=== PATIENT | female | born 2000 | race Caucasian/White ===

== ENCOUNTER 2025-01-03 03:46 | Observation (INO) | payer SELFPAY ==
[2025-01-03] VITALS (21 sets, daily range): BP systolic 78–104; BP diastolic 46–64; PULSE 82–111; RESP 16–24; TEMP 36.5–37.6; O2SAT 94–100; BMI 28.4
[2025-01-03] MEDS: 0.9% Normal Saline (1000mL) 1,000 ML 999 ML IV ×3 (04:25→05:48)
[2025-01-03 04:38] LABS: Absolute Lymphocyte Count 2.56 X10^3/uL (0.83-4.51); Basophil# 0.04 X10^3/uL; Basophil% 0.3 % (0-1); Eosinophil# 0.05 X10^3/uL; Eosinophils% 0.3 % (0-5); Hematocrit 28.5 % (37-47); Hemoglobin 9.6 g/dL (12.0-15.0); Lymphocyte # 2.56 X10^3/ul (0.83-4.51); Lymphocyte % 16.6 % (19-41); Mean Corp Hgb Conc 33.7 g/dL (32-36); Mean Corpuscular Hgb 29.7 pg (27.0-32.0); Mean Corpuscular Volume 88.2 fL (81-99); Mean Platelet Vol. 9.2 fl (6.2-12.0); Monocyte# 0.68 X10^3/uL; Monocyte% 4.4 % (0-10); NRBC Flagged by Analyzer 0 % (0-5); Neutrophil # 11.99 X10^3/uL (2.7-7.7); Neutrophil % 77.8 % (47-70); Platelet Count 289 K/mm3 (150-450); RBC Distribution Width CV 12.6 % (11.6-14.6); RBC Distribution Width SD 40.5 fl (35.1-43.9); Red Blood Count 3.23 M/mm3 (4.2-5.4); White Blood Count 15.4 K/mm3 (4.4-11.0)
[2025-01-03 04:53] LABS: International Normalized Ratio 1.1; Partial Thromboplast Time 25.7 Seconds (24.1-36.2); Prothrombin Time (Protime)PT. 14.7 SECONDS (11.7-14.9)
[2025-01-03 05:28] LABS: Anion Gap 6 (5-15); BUN 17 mg/dL (4-19); BUN/Creat Ratio 24.3 RATIO (10-20); Calcium,Total 8.2 mg/dL (7.6-11.0); Carbon Dioxide 21.9 mmol/L (21.0-32.0); Chloride 107 mmol/L (98-108); Creatinine, Serum 0.68 mg/dL (0.70-1.20); EST Glomerular Filtration Rate 124 (>60); Estimated Creatinine Clearance 120.91 ml/min (50-250); Glucose 133 mg/dL (70-99); Potassium 4.3 mmol/L (3.3-5.1); Sodium Level 134 mmol/L (133-145)
[2025-01-03 05:36] LABS: hCG Titer Quant., Serum 3804 mIU/mL (<9 non-preg)
--- NOTE | 2025-01-03 06:05 | ED.VIS.FEGU ---
HPI HPI - Female History of Present Illness Chief Complaint: Vag Bld, Preg Informant: patient and spouse/S.O. Narrative Narrative: Patient is a G2, P1 approximately 12 weeks with no reported significant past medical history. She states her first child was 9 months old and the was uneventful. She states that she is following with a chemistry laboratory technician. She reports that she has been having spotting for the past week or so and today followed up with a chemistry laboratory technician who performed an ultrasound which reportedly showed nothing within the uterus. She states that there was concern for a miscarriage because of this. She states around 8 PM she started having vaginal bleeding and was going through a pad every 30 minutes to 1 hour. She denies any history of bleeding disorder or blood thinner use. She states that she was sitting on the toilet when she began to feel lightheaded and dizzy and had a syncopal event. With the persistent bleeding and now the syncopal event EMS was called and she was brought in for evaluation. [facility] Medical History Physical exam, pre-employment Home Medications ?Medication ?Instructions ?Recorded ?Last Taken ?Type NK 01/03/25 Unknown History Allergy/AdvReac Type Severity Reaction Status Date / Time No Known Allergies Allergy Verified 01/03/25 03:48 Surgical History (Updated 01/03/25 @ 03:49 by Marla Burdick) [place] teeth removed Hx of tonsillectomy Social History Smoking Status: Never smoker ROS ROS ED Constitutional Constitutional ED: Denies chills or fever(s) Eyes Eyes: Denies change in vision ENT ENT ED: Denies sore throat Cardiovascular Cardiovascular: Reports racing heartbeat; Denies chest pain Respiratory/Chest Respiratory/Chest: Denies cough or dyspnea Gastrointestinal Gastrointestinal: Reports abdominal pain; Denies diarrhea, nausea or vomiting Genitourinary Genitourinary ED: Reports other Details: Positive vaginal bleeding ; Denies dysuria Musculoskeletal Musculoskeletal: Denies myalgias Integumentary Denies rash Neurologic Neurologic: Reports other Details: Positive syncope ; Denies headache(s) Hematologic/Lymphatic Hematologic/Lymphatic: Denies easy bleeding or easy bruising EXAM Physical Exam Const Vital Signs: 01/03/25 03:47 01/03/25 04:47 01/03/25 05:02 Temperature 98.8 F Temperature Source Oral Pulse Rate 92 93 95 Respiratory Rate 18 24 H 19 H Blood Pressure 101/64 78/57 L 90/53 L Blood Pressure Mean 76 64 65 Blood Pressure Source Blood Pressure Position Blood Pressure Location Pulse Ox 100 100 100 Oxygen Delivery Method Room Air 01/03/25 05:30 01/03/25 06:02 Temperature 98.4 F Temperature Source Temporal Pulse Rate 103 H 108 H Respiratory Rate 16 16 Blood Pressure 96/55 L 102/56 L Blood Pressure Mean 68 71 Blood Pressure Source Monitor Blood Pressure Position Supine Blood Pressure Location Right Arm Pulse Ox 94 100 Oxygen Delivery Method Room Air Room Air Positive well nourished and well developed General Appearance ED: well developed and pallor HEENT HEENT Narrative: Normocephalic atraumatic Eyes PERRL and EOMs intact bilaterally Eyes Narrative: There is subconjunctival pallor noted General Eye ED: Yes pale conjunctiva Neck supple Resp normal respiratory effort and clear to auscultation bilaterally Cardio regular rhythm Rate: tachycardic and other Other Details: Tachycardic rate with regular rhythm Radial and carotid pulses are equal and symmetric GI soft to palpation, non-distended and no masses GI Narrative: Abdomen is soft and nondistended with normal active bowel sounds. There is diffuse pain on palpation to the lower abdomen without voluntary guarding or rigidity. No pulsatile mass or fluid wave. No fundus palpated. Auscultation: normoactive bowel sounds Palpation: soft Narrative: There is dried blood around the external vaginal tissue. Upon insertion of the speculum the entire vaginal vault fills with bright red blood. Secondary to this I cannot evaluate the cervix. Extremity normal to inspection and full ROM Extremity Narrative: No asymmetric edema no pitting edema negative Homans' sign bilaterally Neuro oriented x3, CN's II-XII intact bilaterally and no sensory deficits noted Sensorium / Orientation: alert Motor Exam: strength 5/5 throughout Psych mental status grossly normal Skin no rashes or lesions noted Skin Narrative: Diffuse pallor is noted but capillary refill remains less than 3 seconds General Skin Exam: pallor MDM MDM MDM Narrative Medical decision making narrative: Patient arrived to the ER tachycardic with a borderline low blood pressure. She reports that she has been bleeding since 8 PM and going through a pad every 30 minutes to 1 hour. She is pale in color and tachycardic and there is concern for acute blood loss anemia. Patient may be actively miscarrying but as she is in her first trimester could also have an ectopic . Secondary to this basic blood work was obtained. Patient's hemoglobin is low at 9.6 and she states she does not have a history of anemia. With her tachycardia and skin pallor and the fact she has a significant amount of blood loss this will most likely be lower in the upcoming laboratory values. The patient's hCG is roughly 4000 which would correlate with her early gestational age. Otherwise there is no signs of acute kidney injury or electrolyte abnormality. The patient's blood type is O+ going against need for RhoGAM. The patient dropped her blood pressure from her initial presentation down to approximately 70/50. With the hypotension and tachycardia and significant blood loss 2 units of blood was ordered. The patient was continued on IV fluid up to [address] L. [facility]/Dr. Estrada was contacted secondary to her status and significant blood loss and evaluated the patient in the ER. The patient ultimately ended up refusing blood as her blood pressure improved slightly with IV fluid. Dr. Estrada recommended a D&C and admission secondary to the anemia and persistent bleeding. She also recommended the patient received blood that was ordered. The patient agrees to admission and D&C but still refuses blood as she states her blood pressure has been improving with IV fluid. At this time the patient is overall hemodynamically stable with improvement of her blood pressure now to systolic of roughly 100. But as she will need monitored for worsening anemia and surgical intervention to help with her persistent vaginal bleeding should be admitted to the [facility] service for further care. History & Record Review Discussion w/independent historian: Patient and Significant other Lab Data Attestation: I reviewed the patient's lab results. Labs: Laboratory Results - last 24 hr 01/03/25 04:20 WBC 15.4 H RBC 3.23 L Hgb 9.6 L Hct 28.5 L MCV 88.2 MCH 29.7 MCHC 33.7 RDW Std Deviation 40.5 RDW Coeff of Esme 12.6 Plt Count 289 MPV 9.2 Immature Gran % (Auto) 0.600 Neut % (Auto) 77.8 H Lymph % (Auto) 16.6 L [place] % (Auto) 4.4 Eos % (Auto) 0.3 Baso % (Auto) 0.3 Absolute Neuts (auto) 12.0 H Absolute Lymphs (auto) 2.56 Nucleated RBC % 0 PT 14.7 INR 1.1 APTT 25.7 Sodium 134 Potassium 4.3 Chloride 107 Carbon Dioxide 21.9 Anion Gap 6 BUN 17 Creatinine 0.68 L Estim Creat Clear Calc 120.91 Est GFR (MDRD) Non-Af 124 BUN/Creatinine Ratio 24.3 H Glucose 133 H Calcium 8.2 HCG, Quant 3804 H Blood Type O POSITIVE Antibody Screen NEGATIVE Management Discussion w/another healthcare provider: [employer] Route Aide Discharge Plan Triage Chief Complaint: Vag Bld, Preg ED Provider: Nii Mancera Dx/Rx/DC Orders Clinical Impression: Acute blood loss anemia, Vaginal hemorrhage Prescriptions: No Action NK Primary Care Provider: Care Physician,No Primary Referrals: Care Physician,No Primary [Primary Care Provider] - Print Language: Malay Disposition Disposition: Acute Care [facility]
--- NOTE | 2025-01-03 06:09 | PCM.HP.OB ---
[facility] - General General Date of Service: 01/03/25 Chief Complaint: vaginal bleeding HPI Narrative KYLAH DUMONT, is a 24 F who presents to the ER with vaginal bleeding. She reports based on LMP, which she cannot remember at this time, she is 12w3d. She was seeing a clay structure builder and servicer for care. She had spotting and was evaluated by her adjudication specialist this week. The adjudication specialist was unable to see an IUP at that time, so a formal ultrasound was ordered. The formal ultrasound has not been completed yet. There are no reports or images available for review from the ultrasound by the adjudication specialist. She began having heavy bleeding saturating 1 pad every 30 minutes last night and she states she passed out at home so the squad was called. She is still having heavy bleeding and fatigue. She has 1 daughter and she had a vaginal delivery at home. [facility] Medical History Physical exam, pre-employment Home Medications ?Medication ?Instructions ?Recorded ?Last Taken ?Type NK 01/03/25 Unknown History Allergy/AdvReac Type Severity Reaction Status Date / Time No Known Allergies Allergy Verified 01/03/25 03:48 Surgical History (Updated 01/03/25 @ 03:49 by Marla Burdick) [place] teeth removed Hx of tonsillectomy Social History Smoking Status: Never smoker Vital Signs Vital Signs Vital Signs: 01/03/25 03:47 01/03/25 04:47 01/03/25 05:02 Temperature 98.8 F Temperature Source Oral Pulse Rate 92 93 95 Respiratory Rate 18 24 H 19 H Blood Pressure 101/64 78/57 L 90/53 L Blood Pressure Mean 76 64 65 Blood Pressure Source Blood Pressure Position Blood Pressure Location Pulse Ox 100 100 100 Oxygen Delivery Method Room Air 01/03/25 05:30 01/03/25 06:02 Temperature 98.4 F Temperature Source Temporal Pulse Rate 103 H 108 H Respiratory Rate 16 16 Blood Pressure 96/55 L 102/56 L Blood Pressure Mean 68 71 Blood Pressure Source Monitor Blood Pressure Position Supine Blood Pressure Location Right Arm Pulse Ox 94 100 Oxygen Delivery Method Room Air Room Air Weight Weight: 160 lb 7.944 oz Body Mass Index (BMI) 28.4 Physical Exam Const alert and no apparent distress Constitutional Narrative: Tearful, pale appearing GI soft to palpation and non-distended GI Narrative: No rebounding, no guarding, no rigidity Narrative: Speculum quickly fills up with bright red blood and unable to complete an exam given brisk bleeding Labs Labs Labs: Blood Type O POSITIVE Antibody Screen NEGATIVE Hct 28.5 % (37-47) L Hgb 9.6 g/dL (12.0-15.0) L Assessment & Plan (1) Vaginal hemorrhage: PLAN: Patient is hypotensive and tachycardic in the ER. Receiving 2 L IVF per ER as patient is declining a blood transfusion at this time. Discussed a blood transfusion with patient and questions answered. She understands my recommendation is to receive 1 unit of PRBC's, which she declines. She consents to blood products but states she does not want any right now, however she will consider. (2) Acute blood loss anemia: PLAN: Recheck stat CBC. Discussed will admit for observation after suction D&C for repeat blood work. (3) , location unknown: PLAN: Patient had US done by clay structure builder and servicer who was unable to see an IUP. Patient states she is 12w3d by LMP. +HCG today in ER. Bedside TAUS performed (TV probe not working at this time) and no free fluid in pelvis, uterus with thickened appearing endometrium with blood present in the uterus, and possible POC's within the cervix. No obvious IUP or ectopic seen. Discussed with patient of unknown location. Discussed possible ectopic which could lead to if not diagnosed. Reviewed in detail diagnostic laparoscopy with possible removal of ectopic , and the patient declines. The patient states she is only agreeable to a suction D&C. Discussed r/b/a suction D&C and consent signed.
--- NOTE | 2025-01-03 06:15 | HP.PCM.OB_ITS ---
HPI - General General Date of Admission: 01/03/25 Date of Service: 01/03/25 Chief Complaint: vaginal bleeding HPI Narrative KYLAH DUMONT, is a 24 F who presents [facility] Medical History Physical exam, pre-employment Home Medications ?Medication ?Instructions ?Recorded ?Last Taken ?Type NK 01/03/25 Unknown History Allergy/AdvReac Type Severity Reaction Status Date / Time No Known Allergies Allergy Verified 01/03/25 03:48 Surgical History (Updated 01/03/25 @ 03:49 by Marla Burdick) [place] teeth removed Hx of tonsillectomy Social History Smoking Status: Never smoker Vital Signs Vital Signs Vital Signs: 01/03/25 03:47 01/03/25 04:47 01/03/25 05:02 Temperature 98.8 F Temperature Source Oral Pulse Rate 92 93 95 Respiratory Rate 18 24 H 19 H Blood Pressure 101/64 78/57 L 90/53 L Blood Pressure Mean 76 64 65 Blood Pressure Source Blood Pressure Position Blood Pressure Location Pulse Ox 100 100 100 Oxygen Delivery Method Room Air 01/03/25 05:30 01/03/25 06:02 Temperature 98.4 F Temperature Source Temporal Pulse Rate 103 H 108 H Respiratory Rate 16 16 Blood Pressure 96/55 L 102/56 L Blood Pressure Mean 68 71 Blood Pressure Source Monitor Blood Pressure Position Supine Blood Pressure Location Right Arm Pulse Ox 94 100 Oxygen Delivery Method Room Air Room Air Weight Weight: 160 lb 7.944 oz Body Mass Index (BMI) 28.4 Labs Labs Labs: Blood Type O POSITIVE Antibody Screen NEGATIVE Hct 28.5 % (37-47) L Hgb 9.6 g/dL (12.0-15.0) L
[2025-01-03] MEDS: NORMAL SALINE 0.9% IV (06:22)
[2025-01-03] MEDS: DOXYCYCLINE IV (06:22)
[2025-01-03] MEDS: fentaNYL 100 MCG/2 ML Ampul 25 MCG IV (06:31)
[2025-01-03] MEDS: Ondansetron 4 MG/2 ML Vial IV (06:32)
--- NOTE | 2025-01-03 06:44 | PCM.PRE.AN2 ---
ASA Classification* ASA Classification ASA Classification: 4 and E Assessment & Plan Anesthesia* Anesthesia Assessment Anesthesia Assessment: Discussed sedation and/or anesthesia options, risks, benefits, and alternatives with patient/parents/legal guardian/POA. Questions invited. The patient/parents/legal guardian/POA seems to understand and agrees to proceed with anesthesia plan. Reviewed the physical assessment, medical history, allergy history and patient home medications list prior to surgery/procedure/anesthetic and documented any changes. Performed airway and anesthesia risk assessments. Anesthesia Type Anesthesia Type: General (consented for blood products) History Source History Obtained from:: Patient and Chart Anesthesia Focused Assessment* Temperature: 98.0 F Pulse Rate: 83 Blood Pressure: 97/53 Respiratory Rate: 18 Pulse Ox: 100 Oxygen Delivery Method: Room Air Airway Assessment Mouth opens: >3 cm Mallampati Score: II Teeth Condition: Intact Neck Range of motion (ROM): Full ROM Focused Labs Anesthesia Preop lab: CBC WBC 12.0 K/mm3 (4.4-11.0) H 01/03/25 06:46 01/03/25 RBC 2.38 M/mm3 (4.2-5.4) L 01/03/25 06:46 01/03/25 Hgb 7.2 g/dL (12.0-15.0) L 01/03/25 06:46 01/03/25 Hct 21.1 % (37-47) L 01/03/25 06:46 01/03/25 Plt Count 227 K/mm3 (150-450) 01/03/25 06:46 01/03/25 CHEMISTRY Potassium 4.3 mmol/L (3.3-5.1) 01/03/25 04:20 01/03/25 Sodium 134 mmol/L (133-145) 01/03/25 04:20 01/03/25 BUN 17 mg/dL (4-19) 01/03/25 04:20 01/03/25 Creatinine 0.68 mg/dL (0.70-1.20) L 01/03/25 04:20 01/03/25 Glucose 133 mg/dL (70-99) H 01/03/25 04:20 01/03/25 COAG PT 14.7 SECONDS (11.7-14.9) 01/03/25 04:20 01/03/25 HCG, Quant 3804 mIU/mL (<9 non-preg) H 01/03/25 04:20 01/03/25 Pre-Assessment Diagnosis/Proposed Procedure Planned Operative Procedure(s): suction d&c Anesthesia History Anesthesia History - ball point splitter: Anesthesia History - ball point splitter Hx Hospitalization Any Problems With Anesthesia No 01/03/25 05:30 Cholinesterase deficiency No 01/03/25 05:30 You/Your Family Experience No 01/03/25 05:30 fever (hyperthermia) with Relationship Recent Exposure to Contagious No 01/03/25 05:30 Disease Does patient have nerve No 01/03/25 05:30 stimulator Patient instructed to have No 01/03/25 05:30 device shut off --Does patient have Pacemaker No 01/03/25 05:30 or ICD? When Was Last Pacemaker Check QUESTION #4 FULL TEXT: You/Your Family Experience fever (hyperthermia) with Anesthesia Last Oral Intake Last Oral intake: Last Oral Intake NPO since 23:00 01/03/25 05:30 Meds taken in AM with sips of No 01/03/25 05:30 water? Meds patient instructed to take am of surgery PONV PONV - ball point splitter: PONV - ball point splitter Female HX of Motion Sickness HX of N/V After Surgery Non-Smoker Duration of Surgery greater than 60 minutes Number of Risk Factors PONV Score Height & Weight Height & Weight: Anesthesia: Height & Weight Height 5 ft 3 in 01/03/25 05:30 Weight: 72.8 kg 01/03/25 05:30 Body Mass Index (BMI) 28.4 01/03/25 05:30 Respiratory Assessment Respiratory Assessment - ball point splitter: Respiratory Tract Infection Hx - ball point splitter Hx Respiratory Tract Infection No 01/03/25 05:30 STOP Sleep Apnea STOP Sleep Apnea - ball point splitter: STOP Sleep Apnea - ball point splitter Hx Hypertension No 01/03/25 05:30 Hx Sleep Apnea No 01/03/25 05:30 CPAP BIPAP Do you snore loudly (louder No 01/03/25 05:30 than talking or can be heard Do you often feel tired/ No 01/03/25 05:30 fatigued/ sleepy during daytime? Has anyone observed you stop No 01/03/25 05:30 breathing during sleep? STOP Results Negative 01/03/25 05:30 QUESTION #5 FULL TEXT : Do you snore loudly (louder than talking or can be heard through closed doors)? Tobacco Use History Tobacco Use History - ball point splitter: Tobacco Use History - ball point splitter Tobacco Use Smoking Status Never smoker 01/03/25 03:47 Hx Tobacco Use Years Smoking Packs Smoked per Day Smoking Cessation Date was within the last 15 years Hx Smoking Cessation Date Hx Smoking Cessation Counseling Hematologic Medial History Hematologic Hx - ball point splitter: Hematologic Medical Hx - national accounts sales Hx of Blood Transfusion Hx of Transfusion in last 3 Months Date of Last Transfusion (if within last 3 months) Ever experience any problems with transfusion(s)? Specify any problems Hx of Preganancy in last 3 Months Nurse Filling Out Transfusion & Questions: Date: Time: Patient unable to answer at this time (ie. confused, unrespo /Reproduction History /Reproductive History - ball point splitter: /Reproductive Hx- ball point splitter Hx Now Yes 01/03/25 05:30 Gestational Age (in weeks): EDC: Hx 2 01/03/25 03:47 Hx Para Hx Section SAB Yes 01/03/25 05:30 Active Medications Active Medications: Current Medications Generic Name Dose Route Start Last Admin Trade Name Freq PRN Reason Stop Dose Admin Doxycycline Hyclate 200 mg/ 270 mls @ 250 mls/hr 01/03/25 06:22 Sodium Chloride IV 01/03/25 07:24 X1 ONE [facility] Medical History Physical exam, pre-employment Home Medications ?Medication ?Instructions ?Recorded ?Last Taken ?Type NK 01/03/25 Unknown History Allergy/AdvReac Type Severity Reaction Status Date / Time No Known Allergies Allergy Verified 01/03/25 03:48 Surgical History [place] teeth removed Hx of tonsillectomy Social History Smoking Status: Never smoker Review of Systems (Anesthesia) ROS Narrative System reviewed and no additional complaints, except as documented. Physical Exam Const alert and oriented x3 HEENT dentition normal
--- NOTE | 2025-01-03 06:56 | ED.RN ---
pacu nurse aware pt's antibiotic has not been hung yet and pt refusing blood transfusion at this time.
[2025-01-03 07:04] LABS: Hematocrit 21.1 % (37-47); Hemoglobin 7.2 g/dL (12.0-15.0); Mean Corp Hgb Conc 34.1 g/dL (32-36); Mean Corpuscular Hgb 30.3 pg (27.0-32.0); Mean Corpuscular Volume 88.7 fL (81-99); Mean Platelet Vol. 9.3 fl (6.2-12.0); Platelet Count 227 K/mm3 (150-450); RBC Distribution Width CV 12.7 % (11.6-14.6); RBC Distribution Width SD 41.2 fl (35.1-43.9); Red Blood Count 2.38 M/mm3 (4.2-5.4)
[2025-01-03] MEDS: Lidocaine 1% /Epi 1:100 (20ml) 20 ML Vial (08:00)
--- NOTE | 2025-01-03 08:00 | POC_PTH ---
PATIENT: KYLAH DUMONT LOC: [facility] U#:[id number] AGE/SX: ROOM: NJ314 RE01/03/[address]: Dr. Rashida Estrada DO : 2000 BED: 1 DIS: 01/03/2025 SPEC #: [id number] RECD: 01/03/25 09:10 STATUS: TWAN [place] #: [id number] NIKUNJ: 01/03/25 08:[address]: Rashida Estrada DEPT: SURGICAL PATHOLOGY RECD BY: Claudio Peña ENTERED: 01/03/25 10:15 SP TYPE: PROD CONC OTHR DR: No Primary Care Phys Tissues: A - Product of conception, NOS Procedures: Surgery Specimen Level IV HEADER OPERATION: Dilation and curettage, suction PRE-OP DIAGNOSIS: Vaginal hemorrhage, acute blood loss anemia, , location unknown TISSUE SUBMITTED: A- Products of conception MICROSCOPIC DIAGNOSIS A. Uterine contents, products of conception, dilation and curettage: * Degenerated chorionic villi, decidua and hypersecretory endometrium, consistent with products of conception. MICROSCOPIC DESCRIPTION Slides are reviewed. GROSS DESCRIPTION A. Received in formalin in 2 containers, each labeled with the patient's name, date of , and products of conception are multiple red-lópez fragments of soft tissue admixed with an abundant amount of blood clot material measuring 8.0 x 7.0 x 2.6 cm in aggregate (the contents of container 1 and container 2 are combined). The contents are searched and a 7.0 x 4.0 x 2.2 cm semisaccular portion of hemorrhagic red-lópez, spongy soft tissue is identified, possibly consistent with gestational sac. Sectioning of the possible gestational sac reveals red-hernandez, spongy, and markedly hemorrhagic possible chorionic villous tissue. No parts are discovered. No grape-like villi are identified. Building Supervisor sections are submitted in A1-3. [facility] 01-03-2025 CPT:76019
[2025-01-03] MEDS: Silver Nitrate (BKC) 1 EACH (08:19)
--- NOTE | 2025-01-03 08:29 | PCM.OPRPT ---
Problems Associated Problem List Diagnoses (1) Incomplete miscarriage: (2) Vaginal hemorrhage: (3) Acute blood loss anemia: Operative Report (Standard) Operative Information Date of Procedure: 01/03/25 Pre-Operative Diagnosis: Incomplete miscarriage, vaginal bleeding, acute blood loss anemia Post-Operative Diagnosis: As above Surgery/Procedure Performed: Suction D&C mud jack nozzleman: No Type of Anesthesia: General RN Documented Start/Stop Times: Operation Date: 01/03/25 08:00 Case Time Into Pre-Op 01/03/25 06:58 Out of Pre-Op 01/03/25 07:30 Anesthesia Start 01/03/25 07:32 Into Room 01/03/25 07:32 Procedure Start 01/03/25 07:56 Procedure End 01/03/25 08:20 Procedure Start Time: 07:56 Procedure Stop Time: 08:20 Select all DRAINS/GRAFTS/IMPLANTS that apply: None Estimated Blood Loss: 300 mL Fluids Replaced: See anesthesia record Specimen collected: Yes Description of specimen(s) removed: Products of conception Description of surgery: Discussed r/b/a blood transfusion with patient once she arrived in the OR as Hgb 7. Patient agreeable to blood transfusion and order placed to give 2 units of PRBC's. The patient was taken to the operating room where general anesthesia was induced. She was prepped and draped in the dorsal lithotomy position using yellowfin stirrups. A weighted speculum was placed in the vagina to expose the cervix. The anterior lip of the cervix was grasped with a single-tooth tenaculum. The cervix was noted to be dilated with a large amount of retained products of conception within the cervical canal. A ring forcep was used to remove the products of conception in the cervical canal with 2 attempts. A size 9 suction curettage was then used to remove the remaining products of conception, until no further tissue was noted. A sharp curettage was performed along all 4 uterine farmer with good uterine cry. An abdominal ultrasound was performed at the end of the case confirming no further retained products of conception. Bleeding was scant at the end of the case. All sponge counts were correct, and a vaginal sweep was performed. The patient was taken to the recovery in stable condition. Surgical Findings: Products of conception noted mostly within the cervical canal. Small amount of POC's in the uterus as well Complications Complications: No Admit VTE Documentation VTE Present on Admission: No VTE Mechan Device Prophylaxis: SCD's
--- NOTE | 2025-01-03 08:46 | PCM.POST.ANE ---
Anesthesia: Postop Eval I Current Vital Signs Temperature: 97.7 F Pulse Rate: 111 Blood Pressure: 93/48 Respiratory Rate: 16 Pulse Ox: 100 Oxygen Delivery Method: Room Air Assessment Airway patent: Yes Spontaneous unlabored respirations: Yes Mental status: Awake and Calm nausea: No Vomiting: No Anesthesia Complication: No Fluid Hydration Crystalloid volume administer (ml): 1,000 Total IV fluid infused: 1,000 Progress Note Anesthesia document: Postop Eval 1 completed: Yes
--- NOTE | 2025-01-03 08:47 | DCINST_ITS ---
Discharge Instructions Diet Discharge Diet: No restrictions DC O2, CPAP, BIPAP needs Home O2 Discharge instructions: No Dressing / Incision Discharge Activity: May Drive (once you are more than 24 hours out from surgery) and May Shower (once you are more than 24 hours out from surgery) May resume sexual activity in: 2 weeks (nothing in the vagina and no soaking in water until bleeding stops) Weight Bearing Status: Weight bearing as tolerated Additional Activity Instructions:: I recommend taking Ferrous Sulfate 325 mg by mouth every other day at home Use a heating pad and take Ibuprofen if you need for the pain Dressing / Incision Call your doctor if you observe: Fever of 101 or Higher, Using more than 1 pad per hour, Shortness of breath, Dizziness, Chest pain, Increased palpitations (irregular heartbeat), Calf discomfort and Uncontrolled pain Follow Up Care Please Follow Up With: Rashida Estrada DO When: 1 week post op Test Results: Test results from this visit will be discussed in further detail at your follow- up appointment, if applicable. Discharge Plan Admission Admit Date/Time: 01/03/25 06:39 Attending Provider: Rashida Estrada Primary Care Provider: Care Physician,Nini Primary Discharge Orders/Prescriptions Prescriptions: No Action NK Referrals / Follow Up: Care Physician,No Primary [Primary Care Provider] -
--- NOTE | 2025-01-03 09:54 | POSTOPAN2_ITS ---
Anesthesia Postop Eval I Sum Postop Eval Completion status Anesthesia document: Postop Eval 1 completed: Yes Anesthesia Postop Eval I Summary Anesthesia Postop Eval I Summary: Anesthesia Postop Eval I: Assessment Summary Airway patent Yes 01/03/25 08:47 [email or web address] Spontaneous unlabored Yes 01/03/25 08:47 [employer].ACAR respirations Mental status Awake,Calm 01/03/25 08:47 [employer].ACAR nausea No 01/03/25 08:47 [employer].ACAR Vomiting No 01/03/25 08:47 [employer] WORKER.ACAR Anesthesia Postop Eval I: Fluid Summary Crystalloid volume administer 1,000 01/03/25 08:47 [employer] [email or web address].ACAR (ml) Colloids volume administered ( ml) Blood Product volume administered (ml) Total IV fluid infused 1,000 01/03/25 08:47 [employer] WORKER.ACAR Anesthesia Postop Eval I: Summary Notes Anesthesia Complication No 01/03/25 08:47 [employer] WORKER.ACAR Anesthesia Complication Comment: Post-operative progress note Anesthesia: Postop Eval II Evaluation Mental status: Awake and Calm Pain Level: 4 nausea: No Vomiting: No Progress Note Post-operative progress note: given 1u pRBC during the procedure, giving one more unit pRBC in PACU. vitals stable Complications Anesthesia Complication: No
--- NOTE | 2025-01-03 09:54 | PCM.POSTANE2 ---
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 Spontaneous unlabored Yes 01/03/25 08:47 [email or web address] [email or web address].ACAR respirations Mental status Awake,Calm 01/03/25 08:47 [email or web address] [email or web address].[email or web address] nausea No 01/03/25 08:47 TRANSPORT [email or web address].ACAR Vomiting No 01/03/25 08:47 [email or web address] [email or web address].ACAR Anesthesia Postop Eval I: Fluid Summary Crystalloid volume administer 1,000 01/03/25 08:47 [email or web address].ACAR (ml) Colloids volume administered ( ml) Blood Product volume administered (ml) Total IV fluid infused 1,000 01/03/25 08:47 [email or web address] [email or web address].ACAR Anesthesia Postop Eval I: Summary Notes Anesthesia Complication No 01/03/25 08:47 [email or web address] [email or web address].ACAR Anesthesia Complication Comment: Post-operative progress note Anesthesia: Postop Eval II Evaluation Mental status: Awake and Calm Pain Level: 4 nausea: No Vomiting: No Progress Note Post-operative progress note: given 1u pRBC during the procedure, giving one more unit pRBC in PACU. vitals stable Complications Anesthesia Complication: No
[2025-01-03] MEDS: Lactated Ringers 1,000 ML 75 ML IV (10:08)
--- NOTE | 2025-01-03 12:30 | CASEMGMT ---
[place] Assessment: Face to Face with pt for initial transition planning/care coordination assessment. RN JACKY introduced self and role at [facility], pt voices understanding and consents to assessment. Pt sitting up in bed in no distress, pt mom in the room, pt agreeable to answering questions with Pt mom present. Pt is A&O x4 and answers all questions appropriately at this time. Care providers, pharmacy, and demographics verified/updated. Strata: 1 Admitting Dx: D&C PCP: None, Denies wanting a list of local providers Specialists: Denies [facility]erred [facility] Insurance: [employer] Prescription Benefit: yes LNOK: , Paul Living Arrangements: Pt lives with and child in a 2 story home with 3 steps to enter. ADLs: Pt reports I with ADLs and IADLs. Transportation: Pt drives self and denies concerns with transportation. DME: Denies DME HHC/SNF: Denies Hx of. Pt states no concerns with going home at time of dc. Pt states no further concerns/needs. CM to follow. Advised pt to ask CM if any further question/concerns/needs arise, voices understanding. Pt Goal: Home Plan: Home with family support Raissa JUNIOR CM
[2025-01-03 15:13] LABS: Hematocrit 26.6 % (37-47); Mean Corp Hgb Conc 33.8 g/dL (32-36); Mean Corpuscular Hgb 29.7 pg (27.0-32.0); Mean Corpuscular Volume 87.8 fL (81-99); Mean Platelet Vol. 9.1 fl (6.2-12.0); Platelet Count 194 K/mm3 (150-450); RBC Distribution Width CV 13.3 % (11.6-14.6); RBC Distribution Width SD 42.6 fl (35.1-43.9); Red Blood Count 3.03 M/mm3 (4.2-5.4); White Blood Count 12.3 K/mm3 (4.4-11.0)
[2025-01-03 15:56] LABS: International Normalized Ratio 1.2; Prothrombin Time (Protime)PT. 14.9 SECONDS (11.7-14.9)
== END 2025-01-03 17:47 | disposition home or self-care (01) ==
LOC: ED 06:08 → SDC 06:10 → AC 06:10 → SDC 06:39 → MS3 08:51
PROVIDERS: Admitting Provider Obstetrics & Gynecology; Emergency Provider Emergency Medicine; Visit Provider Obstetrics & Gynecology
PROC: (CPT 59812; principal; 2025-01-03 07:45)
DX: O03.39 Incomplete spontaneous abortion with other complications (principal); O99.011 Anemia complicating pregnancy, first trimester; D62 Acute posthemorrhagic anemia; Z3A.12 12 weeks gestation of pregnancy; O99.411 Diseases of the circulatory system complicating pregnancy, first trimester; I95.9 Hypotension, unspecified
CPT/HCPCS: 59812; 36415; 36430; 80048; 84702; 85025; 85027; 85610; 85730; 86850; 86900; 86901; 86920; 86922; 88305; 96361; 96374; 96375; 99221; 99285; P9016; A4216; G0378; J2405